=== PATIENT | female | born 1985 ===

== ENCOUNTER 2023-11-14 10:38 | Inpatient (IN) | payer OTHER ==
[~2023-11-14] VITALS: Ht 162.6 cm; Wt 58.5 kg
[2023-11-14] MEDS ORDERED: NORETHINDRONE 5MG (10:51)
[2023-11-14] MEDS ORDERED: LINZESS290 MCG (10:51)
[2023-11-14] MEDS ORDERED: SYMBICORT 16010.2 GM (10:52)
[2023-11-14] MEDS ORDERED: XOPENEX HFA15 GM (10:53)
[2023-11-14] MEDS ORDERED: IPRATROPIUM (10:53)
[2023-11-14 10:55] VITALS: BP 112/72
[2023-11-16] MEDS ORDERED: POVIDONE-IODINE 118 ML BOTT TOP ONE (06:54)
[2023-11-16] MEDS ORDERED: BUPIVACAINE HCL/MPF 0.5% 30ML VIAL ONE (06:54)
[2023-11-16] MEDS ORDERED: LIDOCAINE HCL 1%/EPINEPHRINE 20ML VIAL IJ ONE (06:54)
[2023-11-16] MEDS ORDERED: METRONIDAZOLE/SODIUM CHLORIDE 500 MG/100 ML PIGGYBACK IV ONE (07:07)
[2023-11-16] MEDS ORDERED: CEFTRIAXONE SODIUM 2,000 MG VIAL ONE (07:07)
[2023-11-16] MEDS ORDERED: NORETHINDRONE AC5 MG (07:43)
[2023-11-16] MEDS ORDERED: IPRATROPIU0.2 MG/1 M (07:43)
[2023-11-16] MEDS ORDERED: PANTOPRAZOLE SO40 MG (07:43)
[2023-11-16] MEDS ORDERED: THROMBIN,HU/FIBRINOGEN/CALCIUM 10 ML SYRINGE TOP ONE ×2 (08:48→09:00)
[2023-11-16] MEDS ORDERED: VISTASEAL DUAL APPICATOR 1 EACH APPL TOP ONE ×2 (08:48→09:00)
[2023-11-16] MEDS ORDERED: RINGERS SOLUTION,LACTATED 1,000 ML IV SCH (13:00)
[2023-11-16] MEDS ORDERED: OxyCODONE HCL 5 MG TABLET (ROXICODONE) PO PRN (13:00)
[2023-11-16] MEDS ORDERED: MORPHINE SULFATE 4 MG/ML CARTRIDGE IV PRN (13:00)
[2023-11-16] MEDS ORDERED: DEXTROSE 50 % IN WATER 0.5 G/ML DISP.SYRIN IV PRN (13:00)
[2023-11-16] MEDS ORDERED: ONDANSETRON HCL 2 MG/ML VIAL IV PRN (13:00)
[2023-11-16] MEDS ORDERED: MORPHINE SULFATE 4 MG/ML VIAL IV ONE ×2 (13:35→14:50)
[2023-11-16 13:40] LABS: HEMATOCRIT 31.3 % (36.0-45.00); HEMOGLOBIN 10.1 g/dL (12.0-15.00); MEAN CELL VOLUME 77.4 fL (80.00-100.00); MEAN CORPUSCULAR HEMOGLOBIN 24.9 pg (27.00-32.0); MEAN CORPUSCULAR HGB CONC 32.2 g/dl (32.0-36.0); PLATELET COUNT 294 K/uL (150-450); RED BLOOD COUNT 4.04 M/uL (4.00-6.00); RED CELL DISTRIBUTION WIDTH 16.4 % (11.5-14.5)
[2023-11-16] MEDS ORDERED: ACETAMINOPHEN 500 MG GEL..CAP PO SCH (14:00)
[2023-11-16] MEDS ORDERED: METOCLOPRAMIDE HCL 5 MG/ML VIAL ONE (16:09)
[2023-11-16 16:50] VITALS: BP 144/79; O2SAT 98
[2023-11-16] MEDS ORDERED: GABAPENTIN 300 MG CAPSULE PO SCH (17:00)
[2023-11-16] MEDS ORDERED: SIMETHICONE 125 MG CAPSULE PO SCH (17:00)
[2023-11-16] MEDS ORDERED: HYOSCYAMINE SULFATE 0.125 MG TAB.SUBL SL SCH (17:00)
[2023-11-16] MEDS ORDERED: METOCLOPRAMIDE HCL 5 MG/ML VIAL IV SCH (17:00)
[2023-11-16 17:11] VITALS: BP 112/72; O2SAT 98
[2023-11-16] MEDS ORDERED: ALBUTEROL SULFATE 3 ML/2.5 MG AMPUL.NEB IH SCH (18:00)
[2023-11-16] MEDS ORDERED: CELECOXIB 200 MG CAPSULE PO SCH (21:00)
[2023-11-16] MEDS ORDERED: FAMOTIDINE/PF 20 MG/2 ML VIAL IV PUSH SCH (21:00)
[2023-11-17 00:53] VITALS: BP 105/71; O2SAT 100
[2023-11-17 06:50] LABS: HEMATOCRIT 28.9 % (36.0-45.00); HEMOGLOBIN 9.5 g/dL (12.0-15.00); MEAN CELL VOLUME 75.9 fL (80.00-100.00); MEAN CORPUSCULAR HEMOGLOBIN 25.1 pg (27.00-32.0); MEAN CORPUSCULAR HGB CONC 33.1 g/dl (32.0-36.0); PLATELET COUNT 254 K/uL (150-450); RED CELL DISTRIBUTION WIDTH 16.7 % (11.5-14.5)
[2023-11-17 07:32] LABS: ALBUMIN 2.8 gm/dL (3.4-5.0); CREATININE SERUM 0.68 mg/dL (0.55-1.02); GFR 97.9; MAGNESIUM 1.8 mg/dL (1.8-2.4); PHOSPHOROUS 2.6 mg/dL (2.5-4.9); POTASSIUM 3.64 mEq/L (3.5-5.1)
[2023-11-17 08:00] VITALS: BP 106/71; O2SAT 100
[2023-11-17] MEDS ORDERED: LACTOBACILLUS ACIDOPHILUS 1 CAP CAP PO SCH (09:00)
[2023-11-17] MEDS ORDERED: SOD FERRIC GLUC COMPLX/SUCROSE 62.5 MG in 0.9 % SODIUM CHLORIDE 50 ML IV SCH (12:00)
[2023-11-17] MEDS ORDERED: Cyanocobalamin/Mecobalamin 1 TAB.SL SL SCH (12:00)
[2023-11-17 16:51] VITALS: BP 105/71; O2SAT 98
[2023-11-17] MEDS ORDERED: ENOXAPARIN SODIUM 40 MG/0.4 ML SYRINGE SUBCUTANEO SCH (17:00)
[2023-11-18] VITALS: BP 113/78; O2SAT 98
[2023-11-18 07:20] LABS: HEMATOCRIT 28.4 % (36.0-45.00); HEMOGLOBIN 9.2 g/dL (12.0-15.00); MEAN CELL VOLUME 76.7 fL (80.00-100.00); MEAN CORPUSCULAR HEMOGLOBIN 24.7 pg (27.00-32.0); MEAN CORPUSCULAR HGB CONC 32.2 g/dl (32.0-36.0); PLATELET COUNT 264 K/uL (150-450); RED BLOOD COUNT 3.71 M/uL (4.00-6.00); RED CELL DISTRIBUTION WIDTH 16.7 % (11.5-14.5)
[2023-11-18 08:07] LABS: CALCIUM 8.1 mg/dL (8.5-10.1); CREATININE SERUM 0.49 mg/dL (0.55-1.02); GFR 142.9; PHOSPHOROUS 3.1 mg/dL (2.5-4.9); POTASSIUM 3.61 mEq/L (3.5-5.1)
[2023-11-18] MEDS ORDERED: ENOXAPARIN SODIUM 40 MG/0.4 ML SYRINGE SUBCUTANEO SCH (09:00)
[2023-11-18] MEDS ORDERED: POLYETHYLENE GLYCOL 3350 17 GM BLIST.PACK PO SCH (09:00)
[2023-11-18 09:29] VITALS: BP 103/73; O2SAT 100
[2023-11-18 16:04] VITALS: BP 103/70; O2SAT 98
[2023-11-19] VITALS: BP 113/61; O2SAT 99
[2023-11-19 08:12] LABS: HEMATOCRIT 24.5 % (36.0-45.00); MEAN CELL VOLUME 77.8 fL (80.00-100.00); MEAN CORPUSCULAR HEMOGLOBIN 25.6 pg (27.00-32.0); MEAN CORPUSCULAR HGB CONC 32.9 g/dl (32.0-36.0); PLATELET COUNT 221 K/uL (150-450); RED BLOOD COUNT 3.16 M/uL (4.00-6.00); RED CELL DISTRIBUTION WIDTH 16.9 % (11.5-14.5)
[2023-11-19 08:26] LABS: HEMOGLOBIN 8.1 g/dL (12.0-15.00)
[2023-11-19 08:50] LABS: ALBUMIN 2.5 gm/dL (3.4-5.0); BILIRUBIN TOTAL 0.33 mg/dL (0.3-1.2); CALCIUM 8.1 mg/dL (8.5-10.1); CREATININE SERUM 0.33 mg/dL (0.55-1.02); GFR 225.49; MAGNESIUM 2.3 mg/dL (1.8-2.4); PHOSPHOROUS 2.8 mg/dL (2.5-4.9); POTASSIUM 3.36 mEq/L (3.5-5.1); TOTAL PROTEIN 5.5 gm/dL (6.4-8.2)
[2023-11-19 09:49] VITALS: BP 116/65; O2SAT 97
[2023-11-19] MEDS ORDERED: POTASSIUM CHLORIDE IN WATER 100 ML IV NR (11:20)
[2023-11-19] MEDS ORDERED: IRON FUM,PS/FOLIC/BCOMP,C NO.9 1 CAP CAPSULE PO SCH (12:00)
[2023-11-19 16:00] VITALS: BP 132/62; O2SAT 100
[2023-11-20 01:03] VITALS: BP 122/71; O2SAT 98
[2023-11-20 08:00] VITALS: BP 119/75; O2SAT 97
[2023-11-20] MEDS ORDERED: INTESTINEX680 M1 PO (12:10)
[2023-11-20] MEDS ORDERED: HYOSCYAMINE0.125 M1 SL (12:10)
[2023-11-20] MEDS ORDERED: INTEGRA F CAPS1 EACH PO (12:11)
== END 2023-11-20 14:30 | disposition home or self-care (01) | DRG 742 ==
LOC: SURH 11-16 05:30 → O/R 11-16 05:30 → SURH 11-16 07:00
PROVIDERS: Internal Medicine Geriatric Medicine; Surgery; Urology; ADMIT Obstetrics & Gynecology Gynecology; ATTEND Obstetrics & Gynecology Gynecology
PROC: 0UT24ZZ Resection of Bilateral Ovaries, Percutaneous Endoscopic Approach (ICD-10-PCS; 2023-11-16)
PROC: 0TN74ZZ Release Left Ureter, Percutaneous Endoscopic Approach (ICD-10-PCS; 2023-11-16)
PROC: 0TN64ZZ Release Right Ureter, Percutaneous Endoscopic Approach (ICD-10-PCS; 2023-11-16)
PROC: 0DNW4ZZ Release Peritoneum, Percutaneous Endoscopic Approach (ICD-10-PCS; 2023-11-16)
PROC: 0DTJ4ZZ Resection of Appendix, Percutaneous Endoscopic Approach (ICD-10-PCS; 2023-11-16)
PROC: 0DTN4ZZ Resection of Sigmoid Colon, Percutaneous Endoscopic Approach (ICD-10-PCS; 2023-11-16)
PROC: 0DBP4ZZ Excision of Rectum, Percutaneous Endoscopic Approach (ICD-10-PCS; 2023-11-16)
PROC: 0UBF4ZZ Excision of Cul-de-sac, Percutaneous Endoscopic Approach (ICD-10-PCS; 2023-11-16)
PROC: 0DJD8ZZ Inspection of Lower Intestinal Tract, Via Natural or Artificial Opening Endoscopic (ICD-10-PCS; 2023-11-16)
PROC: 0T788DZ Dilation of Bilateral Ureters with Intraluminal Device, Via Natural or Artificial Opening Endoscopic (ICD-10-PCS; 2023-11-16)
PROC: 3E0F7GC Introduction of Other Therapeutic Substance into Respiratory Tract, Via Natural or Artificial Opening (ICD-10-PCS; 2023-11-16)
PROC: 0UN24ZZ Release Bilateral Ovaries, Percutaneous Endoscopic Approach (ICD-10-PCS; principal; 2023-11-16 07:00)
PROC: 0UT94ZZ Resection of Uterus, Percutaneous Endoscopic Approach (ICD-10-PCS; 2023-11-16 07:00)
PROC: 0UT74ZZ Resection of Bilateral Fallopian Tubes, Percutaneous Endoscopic Approach (ICD-10-PCS; 2023-11-16 07:00)
DX: D25.1 Intramural leiomyoma of uterus (principal); K91.89 Other postprocedural complications and disorders of digestive system; D25.2 Subserosal leiomyoma of uterus; D25.0 Submucous leiomyoma of uterus; N80.03 Adenomyosis of the uterus; N80.203 Endometriosis of bilateral fallopian tubes, unspecified depth; N80.103 Endometriosis of bilateral ovaries, unspecified depth; N80.00 Endometriosis of the uterus, unspecified; N80.42 Endometriosis of rectovaginal septum with involvement of vagina; N80.5 Endometriosis of intestine; D64.9 Anemia, unspecified; N80.559 Endometriosis of other parts of the colon, unspecified depth; N80.519 Endometriosis of the rectum, unspecified depth; N80.529 Endometriosis of the sigmoid colon, unspecified depth; Z20.822 Contact with and (suspected) exposure to COVID-19; N80.A62 Endometriosis of left ureter, unspecified depth